=== PATIENT | male | born 1970 | race Caucasian/White ===

== ENCOUNTER → 2018-07-05 | Outpatient (CLI) | payer MEDICAID ==
[~2018-07-05] MED LIST: GADOBUTROL 10 ML VIAL IVP ONE
== END ==
LOC: FIMAGING 17:55
PROVIDERS: ATTEND Psychiatry & Neurology Neurology
DX: H46.9 Unspecified optic neuritis (principal); R53.1 Weakness
CPT/HCPCS: A9585

== ENCOUNTER 2018-10-02 06:47 | Emergency (ER) | payer MEDICAID ==
[2018-10-02] MEDS ORDERED: KETOROLAC 15 MG/1 ML SDV ONE (07:00)
[2018-10-02] MEDS ORDERED: ONDANSETRON 4 MG/2 ML VIAL ONE (07:00)
[2018-10-02] MEDS ORDERED: ONDANSETRON 4 MG/2 ML VIAL IVP ONE (07:02)
[2018-10-02] MEDS ORDERED: KETOROLAC 15 MG/1 ML SDV IVP ONE (07:02)
[2018-10-02] MEDS ORDERED: NS 1,000 ML IV ONE ×2 (07:07)
[2018-10-02] MEDS ORDERED: KETOROLAC 30 MG/1 ML SDV IVP ONE (07:07)
--- NOTE | 2018-10-02 07:10 | EDPHY ---
H & P Stated Complaint: L flank pain, diarrhea, and vomiting since approx. 0400 today Time Seen by Provider: 10/02/18 07:01 HPI/ROS: CHIEF COMPLAINT: Left flank pain HISTORY OF PRESENT ILLNESS: The patient is a 47-year-old man with history of kidney stones who comes to the emergency department complaining of left-sided flank pain. He states that it began as a dull ache yesterday evening became more intense this morning. He has been having diarrhea and vomiting for the last 3 hr. He states that the pain radiates to his groin and feels crampy. He states that it is severe. No history of abdominal surgeries. No abdominal tenderness. Severity: Moderate Modifying factors: None REVIEW OF SYSTEMS: Constitutional: denies: chills, fever, recent illness, recent injury EENTM: denies: blurred vision, double vision, nose congestion Respiratory: denies: cough, shortness of breath Cardiac: denies: chest pain, irregular heart rate, lightheadedness, palpitations Gastrointestinal/Abdominal: See HPI Genitourinary: denies: dysuria, frequency, hematuria, pain Musculoskeletal: denies: joint pain, muscle pain Skin: denies: lesions, rash, jaundice, bruising Neurological: denies: headache, numbness, paresthesia, tingling, dizziness, weakness Hematologic/Lymphatic: denies: blood clots, easy bleeding, easy bruising Immunologic/allergic: denies: HIV/AIDS, transplant 10 systems reviewed and negative except as noted EXAM: GENERAL: Slightly pale, retching HEAD: Atraumatic, normocephalic. EYES: Pupils equal round and reactive to light, extraocular movements intact, sclera anicteric, conjunctiva are normal. ENT: TMs normal, nares patent, oropharynx clear without exudates. Moist mucous membranes. NECK: Normal range of motion, supple without lymphadenopathy or JVD. LUNGS: Breath sounds clear to auscultation bilaterally and equal. No wheezes rales or rhonchi. HEART: Regular rate and rhythm without murmurs, rubs or gallops. ABDOMEN: Soft, nontender, normoactive bowel sounds. No guarding, no rebound. No masses appreciated. BACK: No CVA tenderness, no spinal tenderness, step-offs or deformities EXTREMITIES: Normal range of motion, no pitting or edema. No clubbing or cyanosis. NEUROLOGICAL: Cranial nerves II through XII grossly intact. Normal speech, normal gait. 5/5 strength, normal movement in all extremities, normal sensation , normal reflexes PSYCH: Normal mood, normal affect. SKIN: Warm, dry, normal turgor, no visible rashes or lesions. Source: Patient Exam Limitations: No limitations - Personal History Current Tetanus Diphtheria and Acellular Pertussis (TDAP): Yes Tetanus Vaccine Date: within 10 years - Medical/Surgical History Hx Asthma: No Hx Chronic Respiratory Disease: No Hx Diabetes: No Hx Cardiac Disease: No Hx Renal Disease: No Hx Cirrhosis: No Hx Alcoholism: No Hx HIV/AIDS: No Hx Splenectomy or Spleen Trauma: No Other PMH: Adrenal hyperplasia, hypothyroidism, chest excess tissue removal - Family History Significant Family History: No pertinent family hx - Social History Smoking Status: Never smoked Alcohol Use: Sober Drug Use: None Constitutional: Initial Vital Signs Temperature (C) 36.5 C 10/02/18 06:53 Heart Rate 98 10/02/18 06:53 Respiratory Rate 24 H 10/02/18 06:53 Blood Pressure 123/87 H 10/02/18 06:53 O2 Sat (%) 96 10/02/18 06:53 O2 Delivery Mode Room Air Allergies/Adverse Reactions: Sulfa (Sulfonamide Antibiotics) Allergy (Verified 10/02/18 06:56) Pt reports Hives Home Medications: Medication Instructions Recorded Levothyroxine 07/15/13 Ondansetron Odt [Zofran Odt 4 mg 4 mg PO Q4 PRN #20 tab 10/02/18 (RX)] Medical Decision Making - Diagnostics Imaging: Discussed imaging studies w/ call or contact centre operator Radiologist ED Course/Re-evaluation: We discussed the patient's CT results. He now tells me that he has history of congenital adrenal hyperplasia. These changes can be seen on CT. He is feeling much better. This appears to be a gastroenteritis type picture. Vomiting is controlled. Being hydrated. Asking for a little bit more pain medicine. Patient is feeling much better. Will discharge her Zofran. Discussed indications for returning. Abdominal exam remains benign. Differential Diagnosis: Partial list of the Differential diagnosis considered include but were not limited to; gastroenteritis, kidney stone, diverticulitis and although unlikely based on the history and physical exam, I also considered appendicitis , torsion, ischemia, volvulus. I discussed these differential diagnoses and the plan with the patient as well as the usual and expected course. The patient understands that the diagnosis is provisional and that in medicine we are not always correct and that further workup is often warranted. Usual and customary warnings were given. All of the patient's questions were answered. The patient was instructed to return to the emergency department should the symptoms at all worsen or return, otherwise to followup with the physician as we discussed. - Data Points Medications Given: Discontinued Medications Hydromorphone HCl (Dilaudid) 0.5 mg IVP EDNOW ONE Stop: 10/02/18 08:25 Last Admin: 10/02/18 08:29 Dose: 0.5 mg Sodium Chloride (Ns) 1,000 mls @ 0 mls/hr IV ONCE ONE PRN Reason: Wide Open Stop: 10/02/18 07:08 Last Admin: 10/02/18 07:07 Dose: 1,000 mls Sodium Chloride (Ns) 1,000 mls @ 0 mls/hr IV EDNOW ONE; Wide Open PRN Reason: Protocol Stop: 10/02/18 07:08 Last Admin: 10/02/18 07:12 Dose: Not Given Ketorolac Tromethamine (Toradol) 15 mg IVP EDNOW ONE Stop: 10/02/18 07:03 Last Admin: 10/02/18 07:03 Dose: 15 mg Ketorolac Tromethamine (Toradol) 15 mg IVP EDNOW ONE Stop: 10/02/18 07:08 Last Admin: 10/02/18 07:12 Dose: Not Given Ondansetron HCl (Zofran) 4 mg IVP EDNOW ONE Stop: 10/02/18 07:03 Last Admin: 10/02/18 07:03 Dose: 4 mg Point of Care Test Results: CBC CBC Collection Date 10/02/18 CBC Collection Time 06:55 WBC 14.2 RBC 5.38 HGB 17.5 HCT 49.9 PLT 275 Neut # 11.1 Neut 78.2 LYMPH # 2.4 LYMPH 16.8 Other WBC # 0.7 Other WBC 5.0 MCV 92.8 Chemistry 10/02/18 07:10 POC Sodium 149 mEq/L H mEq/L (135-145) POC Potassium 4.0 mEq/L mEq/L (3.3-5.0) POC Chloride 105.0 mEq/L mEq/L (97-110) POC Total CO2 26 mEq/L mEq/L (22-31) POC BUN 18 mg/dL mg/dL (7-23) POC Creatinine 1.1 mg/dL mg/dL (0.7-1.3) POC Glucose 138 mg/dL H mg/dL (70-100) POC Calcium 9.9 mg/dL mg/dL (8.5-10.4) POC Total Bilirubin 1.1 mg/dL mg/dL (0.1-1.4) POC AST 26 IU/L IU/L (17-59) POC ALT 31 IU/L IU/L (21-72) POC Alk Phosphatase 77 IU/L IU/L (38-126) POC Total Protein 7.0 g/dL g/dL (6.3-8.2) POC Albumin 4.3 g/dL g/dL (3.5-5.0) Comprehensive Metabolic Panel CMP Collection Date 10/02/18 CMP Collection Time 06:55 Urine Dip Collection Date 10/02/18 Collection Time 07:18 Specific [place] (1.002-1.030) 1.030 PH (5.0-7.5) 5.5 Leukocytes (Negative) Negative Nitrites (Negative) Negative Protein (Negative) Trace Glucose (Negative) Negative Ketones (Negative) 1+ Urobilnogen (0.2-1.0 EU) 0.2 Bilirubin (Negative) Test Not Performed Blood (Negative) Negative Departure - Departure Disposition: Home, Routine, Self-Care Clinical Impression: Acute gastroenteritis Diarrhea Qualifiers: Diarrhea type: unspecified type Qualified Code(s): R19.7 - Diarrhea, unspecified Condition: Fair Instructions: Gastroenteritis (ED) Referrals: ALCON WILLOUGHBY,. [Primary Care Provider] - 1 day, if not improved Stand Alone Forms: Statement of Treatment Prescriptions: Ondansetron Odt [Zofran Odt 4 mg (RX)] 4 mg PO Q4 PRN #20 tab PRN Reason: Nausea & Vomiting
[2018-10-02] MEDS ORDERED: HYDROmorphONE/DILAUDID 2 MG/ML INJ IVP ONE (08:24)
[2018-10-02 09:36] VITALS: BP 114/68
== END 2018-10-02 09:26 | disposition home or self-care (01) ==
LOC: CED 06:47
DX: K52.9 Noninfective gastroenteritis and colitis, unspecified (principal); E27.8 Other specified disorders of adrenal gland; E03.9 Hypothyroidism, unspecified; Z88.2 Allergy status to sulfonamides
CPT/HCPCS: 74176-PO; 80053-PO; 96374; J1170; J1885; J2405